=== PATIENT | male | born 1960 | race African-American/Black ===

== ENCOUNTER 2022-04-18 02:35 | Emergency (ER) | payer MEDICAID, OTHER ==
[~2022-04-18] VITALS: Ht 167.6 cm; Wt 59.0 kg
[2022-04-18] MEDS ORDERED: CYCLOBENZAPRINE 10MG TABLET PO ONE (03:15)
[2022-04-18] MEDS ORDERED: KETOROLAC 30MG/ML VIAL IM ONE (03:15)
[2022-04-18 03:17] VITALS: BP 158/90
[2022-04-18] MEDS ORDERED: NAPR-1176 MT (03:52)
[2022-04-18] MEDS ORDERED: CYCL10TA21 MT (03:52)
== END 2022-04-18 04:30 | disposition home or self-care (01) ==
LOC: ER 02:35
DX: M79.10 Myalgia, unspecified site (principal)
CPT/HCPCS: 96372; 99283; J1885